=== PATIENT | male | born 2000 | race Caucasian/White ===

== ENCOUNTER 2022-12-13 23:29 | Emergency (ER) | payer OTHER ==
[2022-12-13] MEDS ORDERED: Ondansetron ODT 4 MG TAB ONE (23:54)
== END 2022-12-14 00:05 | disposition home or self-care (01) ==
LOC: CSHERS 23:29
DX: S06.0X0A Concussion without loss of consciousness, initial encounter (principal); M06.9 Rheumatoid arthritis, unspecified; X58.XXXA Exposure to other specified factors, initial encounter
CPT/HCPCS: 99283; Q0162